=== PATIENT | female | born 1965 | race Caucasian/White ===

== ENCOUNTER 2023-10-20 06:49 | Outpatient (REF) | payer OTHER, SELFPAY | END 2023-10-20 06:50 | disposition home or self-care (01) | LOC: HO.HOSX 06:49 | PROVIDERS: Visit Provider Orthopaedic Surgery | DX: Z13.89 Encounter for screening for other disorder (principal) ==

== ENCOUNTER 2023-10-20 08:56 | Outpatient (AMB) | payer OTHER, SELFPAY ==
--- NOTE | 2023-10-20 08:58 | A.OFFVIS_ITS ---
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 The patient describes her pain as sharp and severe in nature. The patient states that she noticed her pain getting worse approximately 2 years ago while going up and down stairs. She did have a cortisone injection given into her right knee earlier this year at [facility] [place]. The injection gave her minimal relief. She has also done physical therapy exercises which aggravated her pain. She has tried Tylenol and anti-inflammatory medicines which gave her minimal relief. The patient states that her right knee pain is interfering with her activities of daily living and her ability to sleep well through the night. The patient could only walk short distances because of her pain. Allergies No Known Allergies Allergy (Verified 10/20/23 09:04) Medication List - Last Reconciled 10/20/23 by Loki Kearns MD No Known Home Meds Physical Exam Const Other: Well-nourished well-developed very friendly female awake alert and oriented x3 in no acute distress Extrem Other: Bilateral lower extremity examination shows good capillary refill, no skin lesions noted, normal sensation light touch Right knee examination shows a minimal effusion, palpable crepitus with range of motion, pain with range of motion, range of motion from -3 degrees to 115 degrees Results Reviewed Results Reviewed: X-rays of the patient's right knee show end-stage degenerative joint disease with grade 4 [id number] arthritis in the lateral compartment, subchondral sclerosis, osteophyte formation, no acute bony abnormalities Assessment & Plan Assessment & Plan (1) Right knee pain: Code(s): M25.561 - Pain in right knee Category: Medical Plan Ms. Ferguson presents with progressively worsening right knee pain due to osteoarthritis. I had a lengthy discussion with the patient regarding the treatment options. We did discuss the possibility of a viscosupplementation injection as well as proceeding with right total knee replacement surgery. The patient wishes to think over her options. She will contact my office once she has made a decision. She will continue with her activity modifications in the meantime. I spent 20 minutes in reviewing the patient's records and imaging studies, seeing the patient and documenting in the medical record. Orders: Orders XR knee RT 3V Today M25.561 - Pain in right knee Coding Level of Care Code New Pt Level 3 (81908) Diagnoses Right knee pain M25.977
== END 2023-10-20 09:29 | disposition home or self-care (01) ==
PROVIDERS: Visit Provider Orthopaedic Surgery
DX: M25.561 Pain in right knee (principal)
CPT/HCPCS: 99203

== ENCOUNTER 2023-11-17 10:28 | Outpatient (AMB) | payer OTHER, SELFPAY ==
[2023-11-17 10:30] VITALS: BP 90/62; PULSE 66; O2SAT 98; BMI 27.1
--- NOTE | 2023-11-17 10:30 | A.OFFPC_ITS ---
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 Allergies No Known Allergies Allergy (Verified 11/17/23 10:44) Medication List - Last Reconciled 11/17/23 by Karina Allen PA-C biotin (Hair, Skin and Nails (biotin)) mcg PO magnesium 250 mg PO DAILY Tobacco use date assessed: 11/17/23 Dental Screening Dental Screen Date: 11/17/23 Did you have a dental visit in the last 12 months?: No Did you have a dental problem in the last 6 months where you did not have access to dental care?: No Was dental information given to patient?: Patient has dentist HPI needs joint replacement surgery HPI Details 58-year-old female with no documented pa st medical history coming into the office for the 1st time.? In review of the notes patient was seen by Dr. Sánchez at [facility] for worsening right knee pain.? Previously she had had a cortisone injection to the right knee, completed physical therapy and has been using Tylenol and anti-inflammatories for her pain.? Discussion of treatment options included viscosupplementation injections or knee replacement. Today she states the knee pain has improved and she has no pain at this time and they have postponed the knee replacement surgery. She recently completed her mammogram last month BI-RADS 1 to return annually, she regularly sees a regional transportation manager and Pap smears are up-to-date with no history of abnormal Pap smears. She has not yet had colon cancer screening or annual lung cancer screening. Unsure if vaccinations are up-to-date. She has no other concerns at this time. [facility] Surgical History (Updated 11/17/23 @ 10:48 by Karina Allen PA-C) H/O removal of cyst H/O lateral meniscus repair of left knee Family History (Updated 11/17/23 @ 10:50 by Karina Allen PA-C) Paternal Grandmother Breast cancer Paternal Aunt Breast cancer Father Afib Brother Heart attack Brother Congestive heart disease Social History (Updated 11/17/23 @ 10:50 by Karina Allen PA-C) Housing: House Alcohol intake: current Alcohol intake frequency: a few times a month Patient Tobacco Use Status: Former Tobacco user (32 year history pack a day) e-Cigarette/Vaping Use: Never Used Second Hand Smoke Exposure: No service: No Current occupational status: employed Current occupational exposures/hazards: No Cognitive needs: No Hearing needs: No Vision needs: No Questionnaire PHQ-9 Over the last 2 weeks, how often have you been bothered by any of the following problems? 1. Little interest or pleasure in doing things: not at all 2. Feeling down, depressed, or hopeless: not at all 3. Trouble falling or staying asleep, or sleeping too much: not at all 4. Feeling tired or having little energy: not at all 5. Poor appetite or overeating: not at all 6. Feeling bad about yourself - or that you are a failure or have let yourself or your family down: not at all 7. Trouble concentrating on things, such as reading the newspaper or watching television: not at all 8. Moving or speaking so slowly that other people could have noticed. Or the opposite - being so fidgety or restless that you have been moving around a lot more than usual: not at all 9. Thoughts that you would be better off or of hurting yourself in some way: not at all Total score: 0 Depression Screening Interpretation: Negative Depression Screening Done: Yes 15116 - PHQ-9 Billing: Yes Source: Developed by Drs. Markie Rothman, My Xie, [place] and colleagues, with an educational tony from [employer]. Thrive Questionnaire Date Thrive assessed: 11/17/23 I am a: Patient What is your living situation today?: I have a steady place to live Within the past 12 months, did the food you bought not last and you didn't have the money to get more?: Never true Within the past 12 months, did you worry whether your food would run out before you got money to buy more?: Never true Do you have trouble paying for medicines?: No Do you have trouble getting transportation to medical appointments?: No Do you have trouble paying your heating and electricity bill?: No Do you have trouble taking care of your child, family member or friend?: No Do you have trouble with day-to-day activities such as bathing, preparing meals, shopping, managing finances, etc.?: No Are you currently unemployed and looking for a job?: No Are you interested in more education?: No Please select the resources that you would like help with: None Currently or been in a relationship where the following occur: No concerns reported THRIVE Score: 0 AUDIT C Alcohol Use Questionnaire (AUDIT-C) 1. How often do you have a drink containing alcohol?: 2-4 times a month 2. How many drinks containing alcohol do you have on a typical day when you are drinking?: 1 or 2 3. How often do you have six or more drinks on one occasion?: Never Total Score: 2 KINSEY-7 AMB Questionnaire KINSEY-7 Date KINSEY - 7 assessed: 11/17/23 Feeling nervous, anxious, or on edge: 0 = Not at all Not being able to stop or control worryin = Not at all Worrying too much about different things: 0 = Not at all Trouble relaxin = Not at all Being so restless that it is hard to sit still: 0 = Not at all Becoming easily annoyed or irritable: 0 = Not at all Feeling afraid as if something awful might happen: 0 = Not at all Total KINSEY-7 score (0-4 normal; 5-9 mild; 10-14 moderate; 15-21 severe): 0 Source: Developed by Drs. Markie Rothman, My Xie, [place] and colleagues, with an educational tony from [employer]. KINSEY-7 Assessment Billing KINSEY-7 Assessment Tool: KINSEY-7 Assessment 52232 Review of Systems Const Denies body aches, Denies fatigue, Denies fever(s), Denies frequent falls, Reports headache(s) (2-4 per month ) and Denies weakness Eyes Reports no additional complaints and Denies change in vision ENT Denies dysphagia, Denies dizziness, Denies facial pain, Reports headache(s) (2-4 per month ), Denies nasal congestion and Denies odynophagia Card Denies chest pain, Denies syncope, Denies irregular heart rhythm, Denies leg edema, Denies lightheadedness and Denies dyspnea Resp Denies cough and Denies dyspnea GI Denies constipation, Denies dysphagia, Denies dyspepsia, Denies diarrhea, Denies nausea, Denies odynophagia and Denies vomiting Denies urinary frequency, Denies dysuria, Denies urinary hesitancy and Denies urinary urgency Musc Denies back pain and Denies myalgias Skin/Breast Reports system reviewed and no additional complaints, except as documented Neuro Denies dizziness, Denies syncope, Denies frequent falls, Reports headache(s) (2- 4 per month ) and Denies weakness Psych Reports no additional complaints Endo Denies fatigue Physical exam (Primary Care) Vital Signs: Oxygen Delivery Method Room Air 11/17/23 10:30 Depression Screening Interpretation: Negative Currently or been in a relationship where the following occur: No concerns repo rted Advance Care Planning discussion: Completed/Scanned (Send home with patient to complete) Forms completed: Health Care Proxy and MOLST Time spent: 1-15 minutes, on File Actual minutes spent: 10 Const General: cooperative, healthy appearing, comfortable and no acute distress Orientation/consciousness: patient oriented x3 HENMT Head: Yes normocephalic Ears: hearing grossly normal bilaterally, external ears normal, TM's normal bilaterally and EAC's normal General nose exam: Normal external nose present Face and sinus: Yes normal facial exam and Yes sinuses nontender Mouth: Normal oral and palatal mucosa present and tongue normal Throat: Yes posterior oropharynx normal Eyes General: appearance normal, both eyes and all related structures Conjunctivae: conjunctivae normal Pupils: Equal, round and reactive pupils present EOM: EOMs intact bilaterally and No Nystagmus present Neck Neck: Yes normal visual inspection, Yes full ROM and Yes no lymphadenopathy Chest Chest palpation & inspection: normal inspection of the chest Resp Effort & Inspection: normal respiratory effort Auscultation: clear to auscultation bilaterally, no crackles, no rales, no rhonchi, no wheezes and breath sounds present Cardio Rate: regular rate Rhythm: regular rhythm Peripheral pulses: radial pulses present and dorsalis pedis present GI Inspection: Yes normal to inspection and No Abdominal wall edema Palpation (GI): Soft to palpation, not firm and nontender Auscultation: normal bowel sounds Rectal Exam - Female: deferred General: Yes no CVA tenderness Back/Spine/Pelvis Back: no CVA tenderness Skin General skin exam: no rashes or lesions noted Neuro General: patient oriented x3 Cranial nerves: Yes Equal, round and reactive pupils present, Yes Midline tongue present, Yes Ability to bilaterally elevate shoulders present and No Nystagmus present Gait exam (Neuro): Normal gait present Extrem General: Yes normal to inspection, Yes full ROM, No no pedal edema and No edema Psych Speech and movement: Normal speech and movement present Affect: normal affect Insight: Good insight present (Psych) Judgement: Good judgement present (Psych) Assessment and Plan Assessment & Plan (1) Right knee pain: Code(s): M25.561 - Pain in right knee Plan: Right knee pain has resolved at this time. On exam there is no tenderness to palpation or swelling. We will continue to follow with Orthopedics as needed. (2) Annual physical exam: Code(s): Z00.00 - Encounter for general adult medical examination without abnormal findings Plan: Patient has not completed colon cancer screening and has declined referral at this time.She does qualify for annual lung cancer screening as well due to 32 pack-year history and having quit 10 years ago. Strongly advised to consider these screening tools as they are recommended and she will reach out when she has made a decision. She has declined updated tetanus shot at this time. We will order for basic blood work and follow up in 1 year or sooner pending blood work results or if new problems arise. Plan This note was constructed using voice recognition software. While every effort has been made to ensure accuracy and mine boss, still areas may have been included sometimes these areas may affect the content or meeting of the given symptoms. Total time spent caring for the patient today was 35 minutes. This includes time spent before the visit reviewing the chart, time spent during the visit, and time spent after the visit and documentation. Orders: Orders Comprehensive Met. Panel Today Z00.00 - Encounter for general adult medical examination without abnormal findings Free T4 (Free Thyroxine) Today Z00.00 - Encounter for general adult medical examination without abnormal findings Complete Blood Count Auto Diff Today Z00.00 - Encounter for general adult medical examination without abnormal findings Thyroid Stimulating Hormone Today Z00.00 - Encounter for general adult medical examination without abnormal findings Lipid Panel Today Z00.00 - Encounter for general adult medical examination without abnormal findings Review Declined TDap/Td: 11/17/23 Coding Level of Care Code New Pt Prev Care 40-64y(55618) Diagnoses Right knee pain M25.561 Annual physical exam Z00.00 Additional Codes KINSEY-7 Assessment Billing - KINSEY-7 Assessment Tool: KINSEY-7 Assessment 62071 ([id number]) Vital Signs *Quality* - Advance Care Planning discussion: Completed/Scanned ([id number]) Vital Signs *Quality* - Time spent: 1-15 minutes, on File ([id number])
== END 2023-11-17 11:08 | disposition home or self-care (01) ==
DX: Z00.00 Encounter for general adult medical examination without abnormal findings (principal); M25.561 Pain in right knee
CPT/HCPCS: 1123F; 99386

== ENCOUNTER 2023-11-24 11:23 | Outpatient (REF) | payer OTHER, SELFPAY ==
[2023-11-24 12:12] LABS: MANUAL DIFF FLAG NO
[2023-11-24 12:30] LABS: Basophils Absolute Auto 0.1 X10*3/uL (0.0-0.2); Basophils Percent Auto 1.5 % (0-2); Eosinophils Absolute Auto 0.1 X10*3/uL (0.0-0.4); Eosinophils Percent Auto 2.4 % (0-4); Hematocrit 41.7 % (37.0-47.0); Hemoglobin 13.5 g/dl (12.0-16.0); Imm Gran Abs Auto 0.01 X10*3/uL (0.00-0.03); Imm Gran Pct Auto 0.2 % (0.0-0.4); Lymphocytes Absolute Auto 1.6 X10*3/uL (1.2-4.9); Lymphocytes Percent Auto 34.8 % (20-40); Mean Corpuscular HGB Conc 32.4 g/dl (31.0-35.0); Mean Corpuscular Hemoglobin 29.5 pg (27.0-33.0); Mean Corpuscular Volume 91.2 fL (80.0-98.0); Mean Platelet Volume 9.4 fL (9.4-12.3); Monocytes Absolute Auto 0.4 X10*3/uL (0.1-1.2); Monocytes Percent Auto 7.5 % (2-11); Neutrophils Absolute Auto 2.5 x10*3/uL (2.0-8.3); Neutrophils Percent Auto 53.6 % (45-73); Platelet Count 286 X10*3/uL (160-400); Red Blood Count 4.57 X10*6/uL (4.20-5.50); Red Cell Distribution Width 12.7 % (11.0-16.0); White Blood Count 4.7 X10*3/uL (4.8-10.8)
[2023-11-24 13:09] LABS: Alanine Aminotransferase 15 U/L (0-31); Albumin Level 3.9 g/dL (3.5-5.0); Alkaline Phosphatase 71 U/L (39-117); Anion Gap 8 (12-20); Aspartate Amino Transferase 18 U/L (5-31); Bilirubin Total 0.6 mg/dL (0.0-1.0); Blood Urea Nitrogen 12 mg/dL (9-16); Calcium 9.9 mg/dL (8.4-10.2); Carbon Dioxide 30 mmol/L (22-29); Chloride 107 mmol/L (96-108); Cholesterol 166 mg/dL (<200); Estimated Glomerular Filt Rate > 60; Glucose Random 90 mg/dL (60-115); HDL Cholesterol 61 mg/dL (>40); LDL Cholesterol Calculated 96 mg/dL (<100); Potassium 4.4 mmol/L (3.3-5.1); Sodium 141 mmol/L (135-145); Total Protein 6.8 g/dL (6.5-8.0); Triglycerides 49 mg/dL (<150)
[2023-11-24 13:25] LABS: Thyroid Stimulating Hormone 1.16 uIU/mL (0.32-4.0)
== END 2023-11-24 11:24 | disposition home or self-care (01) ==
LOC: HO.LAB 11:23
DX: Z00.00 Encounter for general adult medical examination without abnormal findings (principal)
CPT/HCPCS: 36415; 80053; 80061; 84439; 84443; 85025

== ENCOUNTER 2024-11-20 09:59 | Outpatient (AMB) | payer BC, SELFPAY ==
--- NOTE | 2024-11-20 10:05 | A.OFFPC_ITS ---
Vital Signs 11/20/24 10:06 Height 5 ft 6 in Weight 177 lb 6 oz BMI 28.6 BP 116/70 Blood Pressure Location Lt brachial Position Sitting Pulse 76 Pulse Source Pulse Oximeter Temp Source Temporal Artery Scan Pulse Oximetry (%) 96 Oxygen Delivery Method Room Air Intake Visit Reasons: PE Cabinet Builder Required: No Accompanied by: Self / Same As Patient Allergies No Known Allergies Allergy (Verified 11/20/24 10:18) Medication List - Last Reconciled 11/20/24 by Karina Allen PA-C biotin (Hair, Skin and Nails (biotin)) mcg PO magnesium 250 mg PO DAILY Tobacco use date assessed: 11/20/24 Dental Screening Dental Screen Date: 11/20/24 Did you have a dental visit in the last 12 months?: No Did you have a dental problem in the last 6 months where you did not have access to dental care?: No Was dental information given to patient?: No HPI PE HPI Details 59-year-old female with no relevant past medical history coming in for annual exam. Presenting with hand dislocation and laceration and annual exam. The injury occurred during a fall while fishing at night, exacerbated by poor lighting and alcohol consumption. Initial treatment involved emergency room care where bone exposure was noted, followed by a doctor's visit revealing a bone fragment was missing. Subsequent surgery was performed due to suspected tendon rupture, which was not confirmed, but tendons were found entangled in joints. The patient is scheduled to start occupational therapy and has ongoing orthopedic follow-ups. She does mentioned having palpitations and lightheadedness when going from sitting to standing attributed to dehydration rapid positional changes. She does mentioned palpitations several times per week without any associated symptoms of lightheadedness, dizziness, chest pains or shortness of breath. She does have a family history of atrial fibrillation. No other acute concerns today. Mammogram: through [facility] she will call to schedule Pap smear: MAP MOUNTER through [facility] Colonoscopy: Cologuard box ordered vaccines: Td UTD [facility] Surgical History H/O removal of cyst H/O lateral meniscus repair of left knee Family History Paternal Grandmother Breast cancer Paternal Aunt Breast cancer Father Afib Brother Heart attack Brother Congestive heart disease Social History Housing: House Alcohol intake: current Alcohol intake frequency: a few times a month Patient Tobacco Use Status: Former Tobacco user (32 year history pack a day) Years Smoked: QUIT at least 10 years ago e-Cigarette/Vaping Use: Never Used Second Hand Smoke Exposure: No service: No Current occupational status: employed Current occupational exposures/hazards: No Cognitive needs: No Hearing needs: No Vision needs: No Female Reproductive History Menstrual control method: none Questionnaire PHQ-9 Over the last 2 weeks, how often have you been bothered by any of the following problems? 1. Little interest or pleasure in doing things: not at all 2. Feeling down, depressed, or hopeless: not at all 3. Trouble falling or staying asleep, or sleeping too much: not at all 4. Feeling tired or having little energy: not at all 5. Poor appetite or overeating: not at all 6. Feeling bad about yourself - or that you are a failure or have let yourself or your family down: not at all 7. Trouble concentrating on things, such as reading the newspaper or watching t elevision: not at all 8. Moving or speaking so slowly that other people could have noticed. Or the opposite - being so fidgety or restless that you have been moving around a lot more than usual: not at all 9. Thoughts that you would be better off or of hurting yourself in some way: not at all Total score: 0 Depression Screening Interpretation: Negative Depression Screening Done: Yes Source: Developed by Drs. Markie Rothman, My Xie, West Conrad and colleagues, with an educational tony from [employer]. Thrive Questionnaire Date Thrive assessed: 11/20/24 I am a: Patient What is your living situation today?: I have a steady place to live Within the past 12 months, did the food you bought not last and you didn't have the money to get more?: Never true Within the past 12 months, did you worry whether your food would run out before you got money to buy more?: Never true Do you have trouble paying for medicines?: No Do you have trouble getting transportation to medical appointments?: No Do you have trouble paying your heating and electricity bill?: No Do you have trouble taking care of your child, family member or friend?: Yes Do you have trouble with day-to-day activities such as bathing, preparing meals, shopping, managing finances, etc.?: No Are you currently unemployed and looking for a job?: No Are you interested in more education?: No Please select the resources that you would like help with: None THRIVE Score: 0 AUDIT C Alcohol Use Questionnaire (AUDIT-C) 1. How often do you have a drink containing alcohol?: Monthly or less 2. How many drinks containing alcohol do you have on a typical day when you are drinking?: 3 or 4 3. How often do you have six or more drinks on one occasion?: Never Total Score: 2 KINSEY-7 AMB Questionnaire KINSEY-7 Date KINSEY - 7 assessed: 11/20/24 Feeling nervous, anxious, or on edge: 1 = Several days Not being able to stop or control worryin = Several days Worrying too much about different things: 1 = Several days Trouble relaxin = Several days Being so restless that it is hard to sit still: 1 = Several days Becoming easily annoyed or irritable: 1 = Several days Feeling afraid as if something awful might happen: 1 = Several days Total KINSEY-7 score (0-4 normal; 5-9 mild; 10-14 moderate; 15-21 severe): 7 Source: Developed by Drs. Markie Rothman, My Xie, [place] Conrad and colleagues, with an educational tony from [employer]. KINSEY-7 Assessment Billing KINSEY-7 Assessment Tool: KINSEY-7 Assessment 91390 Review of Systems Const Denies body aches, Denies chills, Denies fever(s), Denies headache(s) and Denies poor appetite Eyes Reports no additional complaints ENT Denies dysphagia, Reports dizziness (occasional ), Denies headache(s) and Denies odynophagia Card Denies chest pain, Denies syncope, Denies edema, Reports irregular heart rhythm (heart skipping beats ), Reports lightheadedness and Denies dyspnea Resp Denies cough and Denies dyspnea GI Denies abdominal pain, Denies constipation, Denies dysphagia, Denies diarrhea, Denies nausea, Denies odynophagia and Denies vomiting Reports no additional complaints Musc Reports no additional complaints and Denies abnormal gait Skin/Breast Reports system reviewed and no additional complaints, except as documented Neuro Denies abnormal gait, Reports dizziness (occasional ), Denies syncope and Denies headache(s) Psych Reports no additional complaints Physical exam (Primary Care) Vital Signs: Last Vital Signs Pulse 76 11/20/24 10:06 BP 116/70 11/20/24 10:06 Pulse Ox 96 11/20/24 10:06 Oxygen Delivery Method Room Air 11/20/24 10:06 BMI result Body Mass Index 28.6 Tobacco/Smoking Status: Tobacco use Status Tobacco use date assessed 11/20/24 11/20/24 10:13 Patient Tobacco Use Status Former Tobacco user (32 year 11/20/24 10:13 history pack a day) e-Cigarette/Vaping Use Never Used 11/20/24 10:13 PHQ-9: PHQ-9 Score PHQ-9: Total score 0 11/20/24 10:29 Depression Screening Interpretation: Negative Thrive Assessment: Date of Thrive Assessment Date Thrive assessed 11/20/24 11/20/24 10:13 Const General: cooperative, healthy appearing, comfortable and no acute distress Orientation/consciousness: patient oriented x3 HENMT Head: Yes normocephalic Ears: hearing grossly normal bilaterally General nose exam: Normal external nose present Eyes General: appearance normal, both eyes and all related structures Conjunctivae: conjunctivae normal Neck Neck: Yes full ROM and Yes no lymphadenopathy Resp Effort & Inspection: normal respiratory effort Auscultation: clear to auscultation bilaterally, no crackles, no rales, no rhonchi and no wheezes Cardio Rate: regular rate Rhythm: regular rhythm Skin General skin exam: no rashes or lesions noted Neuro General: patient oriented x3 Gait exam (Neuro): Normal gait present Extrem General: Yes normal to inspection, Yes full ROM and No edema Psych Affect: normal affect Attitude: cooperative Insight: Good insight present (Psych) Judgement: Good judgement present (Psych) Coding Level of Care Code Est Pt Prev Care 40-64y(93689) Diagnoses Annual physical exam Z00.00 Palpitations R00.2 Overweight (BMI 25.0-29.9) E66.3 Dislocation of proximal interphalangeal joint of left little finger, sequela S63.287S Additional Codes KINSEY-7 Assessment Billing - KINSEY-7 Assessment Tool: KINSEY-7 Assessment 95858 ([id number]) Assessment & Plan Assessment & Plan (1) Annual physical exam: Code(s): Z00.00 - Encounter for general adult medical examination without abnormal findings Category: Medical Plan: Patient is up-to-date on all recommended routine screenings and vaccinations for her age. She is due for mammogram screening and agrees to reach out to [facility] to schedule this. I have ordered for updated blood work. Healthy diet and regular exercise is encouraged. (2) Palpitations: Code(s): R00.2 - Palpitations Category: Medical Plan: Holter monitor is ordered to assess for underlying arrhythmia responsible for her palpitations and lightheadedness. Discussed how to appropriately use Holter monitor including the event monitor. Reviewed red flag symptoms and when to present for re-evaluation. (3) Overweight (BMI 25.0-29.9): Code(s): E66.3 - Overweight Category: Medical Plan: Healthy diet and regular exercise is encouraged. (4) Dislocation of proximal interphalangeal joint of left little finger, sequela: Comment: Left PIP dislocation, volar plate avulsion from the base of the middle phalanx s/p exploration Code(s): S63.287S - Dislocation of proximal interphalangeal joint of left little finger, sequela Category: Medical Plan: Patient had a left small finger PIP dislocation s/p exploration which found tendons were wedged into the joint that had subluxed but were completely intact. She is placed in a dorsal blocking splint and followed up with Orthopedics 2 weeks later. She has an additional appointment 11/30/2024 to follow up and she will have sutures removed in the time. She is also undergoing occupational therapy. Plan The patient will continue follow-up with orthopedics for the hand dislocation and laceration, with occupational therapy scheduled to aid in recovery. A Holter monitor will be utilized to evaluate the reported palpitations and lightheadedness, with results to be reviewed by a cake puncher. Preventative care measures include scheduling a mammogram and completing a Cologuard test for colon cancer screening. The patient is advised to maintain adequate hydration to manage reflex tachycardia and to monitor her weight through dietary management. Blood work will be conducted to assess current health status, with fasting required prior to testing. This note was constructed using voice recognition software. While every effort has been made to ensure accuracy and shucker, still areas may have been included sometimes these areas may affect the content or meeting of the given symptoms. Total time spent caring for the patient today was 30 minutes. This includes time spent before the visit reviewing the chart, time spent during the visit, and time spent after the visit and documentation. Patient was informed and verbally consented to the use of an ambient scribe for clinic note documentation during this visit. Orders: Orders ECG 5 day holter monitor Today R00.2 - Palpitations TSH reflex Free T4 Today Z00.00 - Encounter for general adult medical examination without abnormal findings, Z13.29 - Encounter for screening for other suspected endocrine disorder Lipid Panel Today Z13.220 - Encounter for screening for lipoid disorders Vitamin B12 and Folate Today R00.2 - Palpitations, Z13.21 - Encounter for screening for nutritional disorder Vitamin D 25-OH Total Today R00.2 - Palpitations, Z00.00 - [facility] findings Complete Blood Count Auto Diff Today R00.2 - Palpitations, Z00.00 - Encounter for general adult medical examination without abnormal findings Free T4 (Free Thyroxine) Today Z00.00 - Encounter for general adult medical examination without abnormal findings, Z13.29 - Encounter for screening for other suspected endocrine disorder Comprehensive Met. Panel Today E66.3 - Overweight, R00.2 - Palpitations, Z00.00 - Encounter for general adult medical examination without abnormal findings, Z13.1 - Encounter for screening for diabetes mellitus Referrals Cologuard Test Z12.11 - Encounter for screening for malignant neoplasm of colon, Z12.12 - Encounter for screening for malignant neoplasm of rectum
[2024-11-20 10:06] VITALS: BP 116/70; PULSE 76; O2SAT 96; BMI 28.6
--- OUTSIDE RECORDS SUMMARY | 2024-11-20 10:38 | XMS_ITS ---
Author Name [facility] Organization Unknown History of Medication Use Medication Directions Dispensed Refills Start Date End Date Stat triamcinolone acetonide 40 mg/mL suspension for injection Take 40 mg by injection route. 07/28/2023 active Encounters Encounter Type Encounter Reason Primary Diagnosis Location Date Ambulatory [facility] 08/03/2023 Ambulatory [facility] 07/30/2023 Ambulatory [facility] 07/28/2023 Ambulatory [facility] 07/28/2023 Ambulatory [facility] 07/28/2023 Ambulatory [facility] 07[facility]28/2023 Ambulatory [facility] 07/28/2023 Ambulatory [facility] 07/28/2023 Ambulatory [facility] 07/26/2023 Ambulatory [facility] 07/26/2023
== END 2024-11-20 10:45 | disposition home or self-care (01) ==
LOC: HO.HMCH 10:00
DX: Z00.00 Encounter for general adult medical examination without abnormal findings (principal); R00.2 Palpitations; E66.3 Overweight; S63.28 Dislocation of proximal interphalangeal joint of finger

== ENCOUNTER → 2024-11-20 09:59 | Outpatient (BNVA) | payer BC, SELFPAY | DX: Z00.00 Encounter for general adult medical examination without abnormal findings (principal); R00.2 Palpitations; E66.3 Overweight; Z68.28 Body mass index [BMI] 28.0-28.9, adult; S63.287D Dislocation of proximal interphalangeal joint of left little finger, subsequent encounter; X58.XXXD Exposure to other specified factors, subsequent encounter; Z13.31 Encounter for screening for depression; Z13.39 Encounter for screening examination for other mental health and behavioral disorders | CPT/HCPCS: 96127 ==

== ENCOUNTER → 2025-01-01 09:58 | Outpatient (REF) | payer BC, SELFPAY ==
--- NOTE | 2025-01-01 10:07 | HM_ITS ---
* Total monitoring time 4 days. * Underlying rhythm is sinus with an average rate of 64/Min. * Frequent supraventricular ectopy with a burden of 4%. * Rare ventricular ectopy with a burden of 0.5%. * No significant pauses or high-grade AV blocks. * 'Flutter' in patient diary correlates with supraventricular and ventricular ectopy. MTDD
== END ==
LOC: HO.CARD 09:58
DX: R00.2 Palpitations (principal)
CPT/HCPCS: 93242

== ENCOUNTER → 2025-01-01 10:07 | Outpatient (BNV) | payer BC, SELFPAY | PROVIDERS: Visit Provider Internal Medicine | DX: I47.10 Supraventricular tachycardia, unspecified (principal); I49.3 Ventricular premature depolarization | CPT/HCPCS: 93244 ==

== ENCOUNTER 2025-02-20 10:28 | Outpatient (AMB) | payer BC, SELFPAY ==
[2025-02-20 10:35] VITALS: BP 112/82; PULSE 60; TEMP 36.3; O2SAT 96; BMI 29.0
--- NOTE | 2025-02-20 10:35 | MHC.PC.OV ---
Vital Signs 02/20/25 10:35 Height 5 ft 6 in Weight 180 lb BMI 29.0 BP 112/82 Blood Pressure Location Rt brachial Position Sitting Pulse 60 Pulse Source Pulse Oximeter Temp 97.3 F Temp Source Temporal Artery Scan Pulse Oximetry (%) 96 Oxygen Delivery Method Room Air Intake Visit Reasons: f/u palpitations Color Separation Photographer Required: No Accompanied by: Self / Same As Patient Allergies No Known Allergies Allergy (Verified 02/20/25 10:37) Medication List - Last Reviewed 02/20/25 by Fidelia Meng MA biotin (Hair, Skin and Nails (biotin)) mcg PO magnesium 250 mg PO DAILY Tobacco use date assessed: 02/20/25 Dental Screening Dental Screen Date: 02/20/25 Did you have a dental visit in the last 12 months?: No Did you have a dental problem in the last 6 months where you did not have access to dental care?: No Was dental information given to patient?: Patient has dentist HPI f/u palpitations HPI Details 59-year-old female with no relevant past medical history coming in for follow up, last seen 11/2024.? In review of the notes, patient completed Holter monitor which revealed frequent SVT with a burden of 4%. Presenting for a follow-up visit to discuss her Holter monitor results for palpitations. She reports that her symptoms of palpitations have been occurring for a long time and seem to resolve when she takes her vitamins, but return if she forgets to take them for a couple of days. The patient was sick during the week she wore the Holter monitor and was drinking excessive caffeine. She reports new ear symptoms that started at the beginning of January, which she describes as a feeling of being in the ocean, blockage, and waking up with wetness inside her ears. [facility] Surgical History H/O removal of cyst H/O lateral meniscus repair of left knee Family History Paternal Grandmother Breast cancer Paternal Aunt Breast cancer Father Afib Brother Heart attack Brother Congestive heart disease Social History Housing: House Alcohol intake: current Alcohol intake frequency: a few times a month Patient Tobacco Use Status: Former Tobacco user (32 year history pack a day) Tobacco use type: Cigarette Years Smoked: QUIT at least 10 years ago e-Cigarette/Vaping Use: Never Used Second Hand Smoke Exposure: No service: No Current occupational status: employed Current occupational exposures/hazards: No Cognitive needs: No Hearing needs: No Vision needs: No Questionnaire PHQ-9 Over the last 2 weeks, how often have you been bothered by any of the following problems? 1. Little interest or pleasure in doing things: not at all 2. Feeling down, depressed, or hopeless: not at all 3. Trouble falling or staying asleep, or sleeping too much: not at all 4. Feeling tired or having little energy: not at all 5. Poor appetite or overeating: not at all 6. Feeling bad about yourself - or that you are a failure or have let yourself or your family down: not at all 7. Trouble concentrating on things, such as reading the newspaper or watching television: not at all 8. Moving or speaking so slowly that other people could have noticed. Or the opposite - being so fidgety or restless that you have been moving around a lot more than usual: not at all 9. Thoughts that you would be better off or of hurting yourself in some way: not at all Total score: 0 Depression Screening Interpretation: Negative Depression Screening Done: Yes Source: Developed by Drs. Markie Rothman, My Xie, [place] and colleagues, with an educational tnoy from [employer]. Thrive Questionnaire Date Thrive assessed: 02/20/25 I am a: Patient What is your living situation today?: I have a steady place to live Within the past 12 months, did the food you bought not last and you didn't have the money to get more?: Never true Within the past 12 months, did you worry whether your food would run out before you got money to buy more?: Never true Do you have trouble paying for medicines?: No Do you have trouble getting transportation to medical appointments?: No Do you have trouble paying your heating and electricity bill?: No Do you have trouble taking care of your child, family member or friend?: Yes Do you have trouble with day-to-day activities such as bathing, preparing meals, shopping, managing finances, etc.?: No Are you currently unemployed and looking for a job?: No Are you interested in more education?: No Please select the resources that you would like help with: None THRIVE Score: 0 AUDIT C Alcohol Use Questionnaire (AUDIT-C) 1. How often do you have a drink containing alcohol?: Monthly or less 2. How many drinks containing alcohol do you have on a typical day when you are drinking?: 3 or 4 3. How often do you have six or more drinks on one occasion?: Never Total Score: 2 KINSEY-7 AMB Questionnaire KINSEY-7 Date KINSEY - 7 assessed: 11/20/24 Feeling nervous, anxious, or on edge: 1 = Several days Not being able to stop or control worryin = Several days Worrying too much about different things: 1 = Several days Trouble relaxin = Several days Being so restless that it is hard to sit still: 1 = Several days Becoming easily annoyed or irritable: 1 = Several days Feeling afraid as if something awful might happen: 1 = Several days Total KINSEY-7 score (0-4 normal; 5-9 mild; 10-14 moderate; 15-21 severe): 7 Source: Developed by Drs. Markie Rothman, My Xie, [place] and colleagues, with an educational tony from [employer]. Review of Systems Const Denies body aches, Denies chills, Denies fever(s), Denies headache(s) and Denies poor appetite Eyes Reports no additional complaints ENT Denies dizziness and Denies headache(s) Card Denies chest pain, Denies edema, Denies lightheadedness, Reports palpitations and Denies dyspnea Resp Denies dyspnea GI Denies nausea and Denies vomiting Musc Denies abnormal gait Skin/Breast Reports system reviewed and no additional complaints, except as documented Neuro Denies abnormal gait, Denies dizziness and Denies headache(s) Psych Reports no additional complaints Endo Reports palpitations Physical exam (Primary Care) Vital Signs: Last Vital Signs Temp 97.3 F 02/20/25 10:35 Oxygen Delivery Method Room Air 02/20/25 10:35 Tobacco/Smoking Status: Tobacco use Status Tobacco use date assessed 11/20/24 11/20/24 10:13 Patient Tobacco Use Status Former Tobacco user 11/20/24 10:13 e-Cigarette/Vaping Use Never Used 11/20/24 10:13 Depression Screening Interpretation: Negative Thrive Assessment: Date of Thrive Assessment Date Thrive assessed 11/20/24 11/20/24 10:13 Const General: cooperative, healthy appearing, comfortable and no acute distress Orientation/consciousness: patient oriented x3 HENMT Head: Yes normocephalic Ears: hearing grossly normal bilaterally, EAC's normal and TM abnormal wth effusion serous bilateral General nose exam: Normal external nose present Eyes General: appearance normal, both eyes and all related structures Conjunctivae: conjunctivae normal Neck Neck: Yes full ROM and Yes no lymphadenopathy Resp Effort & Inspection: normal respiratory effort Auscultation: clear to auscultation bilaterally, no crackles, no rales, no rhonchi and no wheezes Cardio Rate: regular rate Rhythm: regular rhythm Skin General skin exam: no rashes or lesions noted Neuro General: patient oriented x3 Gait exam (Neuro): Normal gait present Extrem General: Yes normal to inspection, Yes full ROM and No edema Psych Affect: normal affect Attitude: cooperative Insight: Good insight present (Psych) Judgement: Good judgement present (Psych) Coding Level of Care Code Est Pt Level 3 (54655) Diagnoses Serous otitis media H65.90 Supraventricular beat, premature I49.1 Assessment & Plan Assessment & Plan (1) Serous otitis media: Code(s): H65.90 - Unspecified nonsuppurative otitis media, unspecified ear Category: Medical Plan: The patient's ear symptoms, including a sensation of fullness and whooshing sounds, are likely caused by Eustachian tube dysfunction secondary to allergies or sinus issues, as evidenced by a small amount of fluid behind the tympanic membranes on exam. There are no signs of acute infection. It was recommended that the patient try [id number] treatments such as Flonase and Zyrtec for symptomatic relief. (2) Supraventricular beat, premature: Code(s): I49.1 - Atrial premature depolarization Category: Medical Plan: Holter monitor results confirmed intermittent supraventricular beats and some ventricular ectopy, consistent with the patient's reported palpitations. The arrhythmia is not atrial fibrillation. Potential triggers discussed include illness, stress, caffeine, and dehydration. The patient reports symptomatic improvement with vitamin supplements. A referral will be placed for a cardiology consultation at patient request. Initiation of metoprolol will be deferred at this time, as the patient reports her symptoms are currently controlled and she prefers to see the mica paster first. The patient was advised to report if symptoms such as palpitations, heart racing, skipped beats, lightheadedness, or dizziness recur. The patient was educated on lifestyle modifications, including avoiding triggers. She was also advised to seek emergency care for any sustained episodes. Plan This note was constructed using voice recognition software. While every effort has been made to ensure accuracy and blanket winder operator, still areas may have been included sometimes these areas may affect the content or meeting of the given symptoms. Total time spent caring for the patient today was 20 minutes. This includes time spent before the visit reviewing the chart, time spent during the visit, and time spent after the visit and documentation. Patient was informed and verbally consented to the use of an ambient scribe for clinic note documentation during this visit. Orders: Referrals Cardiology Referral I49.1 - Atrial premature depolarization
== END 2025-02-20 11:21 | disposition home or self-care (01) ==
LOC: HO.HMCH 10:28
DX: H65.90 Unspecified nonsuppurative otitis media, unspecified ear (principal); I49.1 Atrial premature depolarization